=== PATIENT | female | born 1975 | race Caucasian/White ===

== ENCOUNTER 2018-09-23 20:11 | Emergency (ER) | payer MEDICAID ==
[~2018-09-23] VITALS: Ht 149.9 cm; Wt 90.3 kg
[~2018-09-23 20:11] MED LIST: ALBU8.5H5 INH; HYDR-3498 PO
[2018-09-23 21:15] VITALS: Ht 149.9 cm; Wt 90.3 kg
[2018-09-24] MEDS ORDERED: DEXAMETHASONE 10 MG/ML 1 ML INJ IM ONE (01:00)
[2018-09-24] MEDS ORDERED: BEN25 PO (01:23)
--- NOTE | 2018-09-24 01:29 | ERD ---
ER Documentation Chief Complaint Chief Complaint C/O GENERALIZED RASH AND ITCHINESS X2 MONTHS HPI Patient is a 43-year-old female with no past medical history presents the ER for concerns of a generalized rash and itchiness for the last 2 months. Patient states she has a rash that comes and goes. Patient states that the rash is itchy in nature. Patient brings in a picture which shows that patient has hive- like lesions on her abdomen. Patient states she has seen her doctor and she has tried different creams and medications minimal alleviation of symptoms. Patient denies any new lotions, foods, medications. Patient states she did get a cat 4 months ago. Patient denies any nausea, vomiting, abdominal pain or diarrhea. Patient denies any lip tongue, tongue swelling, difficulty breathing, difficulty swallowing. At this time patient reports a few lesions on her lower back. ROS All systems reviewed and are negative except as per history of present illness. Medications Home Meds Active Scripts Diphenhydramine Hcl* (Benadryl*) 25 Mg Cap, 25 MG PO Q6, #30 CAP Prov:NILO VAZQUEZ PA-C 09/24/18 Hydrocodone Bit-Acetaminophen* (Alta*) 5-325 Mg Tab, 1 TAB PO Q6 PRN for PAIN, #20 TAB Prov:CHAYO MOORE NP 06/19/15 Reported Medications Albuterol Sulfate* (Albuterol Sulfate* HFA) Unknown Strength Hfa.aer.ad, INH Q4 PRN for SHORTNESS OF BREATH, #1 EA 06/19/15 Allergies Allergies: Coded Allergies: No Known Drug Allergy (Verified Allergy, Unknown, 09/24/18) PMhx/Soc History of Surgery: Yes (c/section, tubal ligation) Hx Respiratory Disorders: Yes (asthma) Hx Alcohol Use: No Hx Substance Use: No Hx Tobacco Use: No Smoking Status: Never smoker FmHx Family History: No diabetes Physical Exam Vitals Vital Signs Date Temp Pulse Resp B/P (MAP) Pulse Ox O2 O2 Flow FiO2 Time Delivery Rate 09/23/18 97.6 74 19 123/56 99 21:15 (78) Physical Exam GENERAL: Well-developed, well-nourished male. Appears in no acute distress. Speaking in full sentences HEAD: Normocephalic, atraumatic. EYES: Pupils are equally reactive bilaterally. EOMs grossly intact. No conjunctival erythema. ENT: Moist mucous membranes. No uvula deviation. No kissing tonsils. No lip swelling. No tongue swelling. Oropharynx is open and patient is tolerating secretions well. NECK: Supple. No meningismus. Normal range of motion of the neck. LUNG: Clear to auscultation bilaterally. No rhonchi, wheezing, rales or coarse breath sounds. No stridor. HEART: Regular rate and rhythm. No murmurs, rubs or gallops. EXTREMITIES: Equal pulses bilaterally. No peripheral clubbing, cyanosis or edema. No unilateral leg swelling. NEUROLOGIC: Alert and oriented. Moving all four extremities without any difficulty. Normal speech. Steady gait. SKIN: Few erythematous plaque-like lesions consistent with hives and on the patient's lower back. Warm and dry. Results 24 hrs Current Medications Medications Dose Sig/Juanjo Start Time Status Last (Trade) Ordered Route PRN Stop Time Admin Dose Reason Admin 10 mg ONCE ONCE 09/24/18 DC 09/24/18 Dexamethasone IM 01:00 00:57 (Decadron) 09/24/18 01:01 25 mg ONCE ONCE 09/24/18 Diphenhydrami PO 01:30 ne HCl 09/24/18 01:31 (Benadryl) Procedures/MDM MEDICAL DECISION MAKING: This is a 43-year-old female who presents the ER for concerns of intermittent rash and itchiness for the last 2 months. Vital signs were reviewed. Patient was afebrile. Patient is not diabetic. Skin exam revealed some hive-like lesions on the patient's lower back. Patient denies any lip swelling, tongue swelling, difficulty breathing. Patient states she did get cat 4 months ago. Patient denies any new foods, medications, lotions. At this time, the patient presentation is most consistent with allergic reaction and hives. Patient was advised to see if she is allergic to cats. Patient was advised to follow-up with media relations specialist. Patient was given Decadron IM and here in the ER and advised to continue Benadryl at home. Low suspicion for anaphylaxis, necrotizing fasciitis, sepsis, gangrene, Tree-Johnny syndrome, toxic epidural necrolysis, abscess, cellulitis, herpes zoster, viral exanthem, fungal infection, insect bite, impetigo, dermatitis. PRESCRIPTIONS: Benadryl DISCHARGE: At this time, patient is stable for discharge and outpatient management. I have advised the patient to avoid any new products, creams or possible allergens. I have advised the patient to avoid scratching the lesions. I have instructed the patient to follow-up with his/her primary care physician in 1-2 days. If symptoms persist, patient may need to see a exhibition specialist for further examinations and testing. I have instructed the patient to promptly return to the ER at any time for any new or worsening symptoms including increased pain, fever, redness, swelling, warmth, difficulty breathing or vomiting. The patient and/or family expressed understanding of and agreement with this plan. All questions were answered. Home care instructions were provided. Disclaimer: Inadvertent spelling and grammatical errors are likely due to EHR/dictation software use and do not reflect on the overall quality of patient care. Also, please note that the electronic time recorded on this note does not necessarily reflect the actual time of the patient encounter. Departure Diagnosis: Primary Impression: Hives Additional Impression: Allergic reaction Encounter type: initial encounter Qualified Codes: T78.40XA - Allergy, unspecified, initial encounter Condition: Fair Patient Instructions: First Aid: Allergic Reactions, Hives Referrals: [facility] YOU HAVE RECEIVED A MEDICAL SCREENING EXAM AND THE RESULTS INDICATE THAT YOU DO NOT HAVE A CONDITION THAT REQUIRES URGENT TREATMENT IN THE EMERGENCY DEPARTMENT. FURTHER EVALUATION AND TREATMENT OF YOUR CONDITION CAN WAIT UNTIL YOU ARE SEEN IN YOUR DOCTORS OFFICE WITHIN THE NEXT 1-2 DAYS. IT IS YOUR RESPONSIBILITY TO MAKE AN APPOINTMENT FOR FOLOW-UP CARE. IF YOU HAVE A PRIMARY DOCTOR --you should call your primary doctor and schedule an appointment IF YOU DO NOT HAVE A PRIMARY DOCTOR YOU CAN CALL OUR PHYSICIAN REFERRAL HOTLINE AT IF YOU CAN NOT AFFORD TO SEE A PHYSICIAN YOU CAN CHOSE FROM THE FOLLOWING [facility] CLINICS [facility] [address] [facility] [address] [facility] [address] [facility] [facility] [address] [facility]. [facility] [address] [facility]. [facility]. [address] [facility] [facility] YOU HAVE RECEIVED A MEDICAL SCREENING EXAM AND THE RESULTS INDICATE THAT YOU DO NOT HAVE A CONDITION THAT REQUIRES URGENT TREATMENT IN THE EMERGENCY DEPARTMENT. FURTHER EVALUATION AND TREATMENT OF YOUR CONDITION CAN WAIT UNTIL YOU ARE SEEN IN YOUR DOCTORS OFFICE WITHIN THE NEXT 1-2 DAYS. IT IS YOUR RESPONSIBILITY TO MAKE AN APPOINTMENT FOR FOLOW-UP CARE. IF YOU HAVE A PRIMARY DOCTOR --you should call your primary doctor and schedule and appointment IF YOU DO NOT HAVE A PRIMARY DOCTOR YOU CAN CALL OUR PHYSICIAN REFERRAL HOTLINE AT . IF YOU CAN NOT AFFORD TO SEE A PHYSICIAN YOU CAN CHOSE FROM THE FOLLOWING [facility] INSTITUTIONS: [facility] [address] [place] [address] [facility] [address] [place], [place] [id number] [place] [address] [address] [place] [address] Additional Instructions: Llame al doctor MAANA y lore clark LG PARA DENTRO DE 1-2 BEY.Dgale a la secretaria que nosotros le instruimos hacer esta lg.Avise o llame si eller condicin se empeora antes de la lg. Regresa aqui si peor o no mejor. NILO VAZQUEZ PA-C Sep 24, 2018 01:29
[2018-09-24] MEDS ORDERED: DIPHENHYDRAMINE 25 MG CAP PO ONE (01:30)
[2018-09-24 01:48] VITALS: BP 124/79; PULSE 71; RESP 16
== END 2018-09-24 01:49 | disposition home or self-care (01) ==
LOC: FTE 20:11
DX: L50.9 Urticaria, unspecified (principal); J45.909 Unspecified asthma, uncomplicated
CPT/HCPCS: 96372; J1100; Z7502; Z7610